=== PATIENT | female | born 1965 | race Caucasian/White ===

== ENCOUNTER → 2020-08-01 | Outpatient (CLI) | payer OTHER ==
[~2020-08-01] MED LIST: ATORVASTATIN CA40 MG PO; AUGMENTIN 875875 MG PO; BACLOFEN 10MG T10 MG PO; BENTYL 10 MG CA10 MG PO; EFFEXOR 5050 MG/1 T1 PO; EFFEXOR XR75 MG PO; FLEXERIL PO; KEPPRA 500 MG500 M1 PO; METHADONE HCL5 MG PO; MIRAPEX0.125 MG PO; MOBIC7.5 MG PO; NEURONTIN 300300 M1 PO; NORVASC5 MG PO; OXYCONTIN10 M1 PO; OXYCONTIN20 M1 PO; PERCOCET 5-3251 EACH PO; PERCOCET 7.5-31 EACH PO; PREDNISONE 20 M20 M1 PO; TOPROL XL25 MG PO; VENLAFAXIN75 MG/1 T2 PO
== END ==
LOC: MRI 10:46
DX: M51.15 Intervertebral disc disorders with radiculopathy, thoracolumbar region (principal); M43.16 Spondylolisthesis, lumbar region; M48.07 Spinal stenosis, lumbosacral region; M47.27 Other spondylosis with radiculopathy, lumbosacral region; G89.29 Other chronic pain; M43.22 Fusion of spine, cervical region; M41.86 Other forms of scoliosis, lumbar region; M48.03 Spinal stenosis, cervicothoracic region; M25.78 Osteophyte, vertebrae

== ENCOUNTER 2020-09-29 10:19 | Inpatient (IN) | payer OTHER ==
[~2020-09-29] VITALS: Ht 154.9 cm; Wt 90.7 kg
--- NOTE | ~2020-09-29 | O ---
[facility] [place] [address] OPERATIVE REPORT Name: SAJI LIPSCOMB Room #: 440-P ADM IN M.R.#: [id number] Admission: 09/29/20 Attend Phys: Zac Nettles MD Discharge: Date of : 61 Report #: [id number] THIS REPORT FOR: cc: KAYLEE - Family physician unknown KAYLEE - Family physician unknown Brenton Polk MD ~ CC: [facility] unknown Brenton Nettles DATE OF SERVICE: 10/06/2020 PREOPERATIVE DIAGNOSES: C3-C4 spinal stenosis, myelopathy; C6-C7 stenosis with myelopathy, previous anterior cervical diskectomy and fusion C4-C7. PROCEDURE: Application and removal of Romeo tongs, posterior instrumentation, C3-C4; posterior fusion, C3-C4; local bone graft harvest; laminectomy with partial facetectomy and neural foraminotomy bilateral C3, laminectomy with partial facetectomy and neural foraminotomy bilateral C4, laminectomy with partial facetectomy and neural foraminotomy C6, laminectomy with partial facetectomy and neural foraminotomy C7. Fluoroscopy. SURGEON: Dr. Brenton Polk. BANQUET CAPTAIN SURGEON: Dr. Kylah Ojeda. ANESTHESIA: General via endotracheal tube. INDICATIONS: The patient has had intractable neck and arm pain. She is also myelopathic. She has weakness and sensory changes in the arms diffusely. She has incoordination of the arms. She has unsteadiness on her feet. She has difficulty arising from a chair. She has lower extremity weakness and imbalance and she had truncal numbness. The patient was on Plavix and we had to wait to perform her surgery. The patient was maintained at bed rest and given some steroids, which showed some improvement of her condition. The patient was shown to be stenotic at C3-C4 and C6-C7. The patient having proved refractory to multimodality conservative management was brought to the operating room after understanding the risks of surgery to be , DVT, pulmonary embolism, paraplegia, quadriplegia, loss of the use of the arms, the legs, numbness, tingling, weakness, incoordination; loss of the ability to ambulate, loss of bowel and bladder function, loss of sexual function, possibility of bleeding, bleeding requiring transfusion, transfusion attendant risks of AIDS and hepatitis, infection, instability, the need for revision, prolonged hospital stay, dural leak, spinal headache. DESCRIPTION OF PROCEDURE: The patient was brought to the operating room, [address] [address] OPERATIVE REPORT Name: SAJI LIPSCOMB Room #: 440-P [facility] IN M.R.#: [id number] Admission: 09/29/20 Attend Phys: Zac Nettles MD Discharge: Date of : 61 Report #: [id number] prepped with 4 pin placement and Romeo tongs were applied. They were torqued to appropriate tightness. The patient was then transferred to the table on transverse rolls in a neck neutral position. The arms were carefully padded, tucked and taped to the side; the head Romeo attachment was attached to the table. The patient then underwent fluoroscopy to document position of the neck in a neutral position. With the neck in a neutral position, we were able to then sterilely prep and drape, infiltrate the skin with 0.5% Marcaine, 1:200,000 epinephrine. Sharp dissection was continued down through the skin, the subcutaneous tissues to the level of the fascia. Tips of the spinous processes were subperiosteally exposed and we performed a C2-C7 subperiosteal dissection, maintaining the facet capsules at C2-C3 and C7-T1. We then exposed the lateral masses and placed pedicle screw and lateral mass screws in the C3-C4 level. We drilled out the facets for later bone grafting. We then thinned and removed the spinous processes of C3 and C4 and performed a wide decompressive laminectomy of the C3 and C4 levels until we were lateral to the spinal sac. We then moved to the C6-C7 level and performed a wide decompressive bilateral laminectomy at C6 and C7 having removed the spinous processes and lamina. With the C6-C7 and C3-C4 levels decompressed completely, using no more than a 2 mm Kerrison and for most of the decompression the lamina was thinned so thin that we could lift it up with a micro curette under loupe magnification and headlight illumination. At the completion, all the removed bone, which had been meticulously cleaned and morcellized and saved was packed in the inner facet region at C3-C4. We confirmed good placement of our instrumentation with a final AP and lateral x-ray and it showed excellent placement of instrumentation at the C3-C4 level. With the C3-C4 level completed and the fusion complete at the C3 and C4 level and the decompression complete at C3-C4 and C6-C7, we were able to copiously irrigate with a liter of antibiotic-containing solution, obtained meticulous hemostasis, placed a gram of vancomycin in the wound and placed a deep drain. With the drain placed, we closed the deep fascial layer with 0 Ethibond in [id number] interrupted fashion, deep subQ with 0 Vicryl, superficial subQ with 2-0 Vicryl, skin with subcuticular 3-0, dressed it with benzoin, Steri-Strips, Xeroform, sterile dressing, sponges and a bioclusive. The patient tolerated the procedure well, no technical misadventures being placed in a soft collar and Romeo tongs were removed and the pin tracts were treated with antibiotic ointment and the patient was being transported to the recovery room for closer neurovascular observation discharge for once stable. There were no technical misadventures. Final x-rays showed excellent position of all instrumentation at the appropriate levels. Those screws were of appropriate length and trajectory and the patient tolerated the procedure well and was physiologically stable throughout. She is being transported to the recovery room for closer neurovascular observation discharge for once stable to continue prophylactic antibiotics and serial neurovascular exams. By: 1510 1540 Brenton Polk MD /nt
[~2020-09-29 10:19] MED LIST changes: -ATORVASTATIN CA40 MG PO; +LIPITOR40 MG PO
[2020-09-29 10:22] VITALS: BP 159/71
[2020-09-29 11:36] LABS: ABSOLUTE NEUTROPHILS 6.4 thou/uL (1.4-8.2); BASOPHILS 1.1 % (0.0-2.0); EOSINOPHILS 3.8 % (0.0-3.0); HEMATOCRIT 43.5 % (37.0-47.0); HEMOGLOBIN 15.1 gm/dL (12.0-15.0); LYMPHOCYTES 34.5 % (24.0-44.0); MCH 32.2 pg (26.0-34.0); MCHC 34.7 g/dL (28.0-37.0); MCV 92.7 fL (80.0-100.0); MONOCYTES 6.9 % (1.0-8.0); PLATELET COUNT 329 thou/uL (150-400); POLYS 53.7 % (36.0-66.0); RBC 4.69 mil/uL (4.20-5.00); RDW 12.9 % (10.5-14.5)
[2020-09-29 11:43] LABS: CALCIUM 9.5 mg/dL (8.5-10.1); CREATININE 0.8 mg/dL (0.6-1.0); POTASSIUM 3.6 mmol/L (3.5-5.1)
[2020-09-29 11:49] LABS: ALBUMIN 4.4 g/dL (3.4-5.0); TOTAL BILIRUBIN 0.6 mg/dL (0.2-1.0); TOTAL PROTEIN 8.1 g/dL (6.4-8.2)
[2020-09-29 13:09] VITALS: BP 159/71
[2020-09-29] MEDS ORDERED: CARVEDILOL12.5 MG PO (13:35)
[2020-09-29] MEDS ORDERED: ASA81BEC PO (13:35)
[2020-09-29] MEDS ORDERED: LISINOPRIL2.5 MG PO (13:36)
[2020-09-29] MEDS ORDERED: PLAVIX 75 MG TA75 MG PO (13:36)
[2020-09-29] MEDS ORDERED: RABEPRAZOLE SOD20 MG PO (13:38)
[2020-09-29] MEDS ORDERED: CYCLOBENZAPRINE10 MG PO (13:38)
--- NOTE | 2020-09-29 15:05 | EKG ---
[facility] [place] [address] ELECTROCARDIOGRAM REPORT Name: SAJI LIPSCOMB Room #: 457-P ADM IN M.R.#: [id number] Admission: 09/29/20 Attend Phys: Zac Nettles MD Discharge: Date of : 61 Report #: [id number] THIS REPORT FOR: cc: FAM - Family physician unknown FAM - Family physician unknown Serafin Connors MD [facility] ~ THIS REPORT FOR: //name// [facility] ED Test Date: 2020-09-29 Test Time: 12:46:29 Pat Name: SAJI LIPSCOMB Department: Room: [facility] Gender: F Director Of Officiating: [facility] : 1965 Requested By: Saúl Tejada Order Number: [id number] MD: Serafin Connors Measurements Intervals [place] Rate: 64 P: 50 PA: 163 QRS: 58 QRSD: 93 T: 29 QT: 424 QTc: 438 Interpretive Statements Sinus rhythm Compared to ECG 11/05/2014 13:16:52 No significant changes Electronically Signed On 09-29-2020 15:04:49 JIG AND FIXTURE REPAIRER by Serafin Connors [email or web address] <ELECTRONICALLY SIGNED> By: Serafin Connors MD, FACC 09/29/20 1504 1246 1246 Serafin Connors MD, [facility] /EPI
[2020-09-29 15:16] LABS: FOLIC ACID 11.6 ng/mL (8.6-58.9); TSH 2.284 uIU/mL (0.358-3.740)
[2020-09-29 15:44] VITALS: BP 141/70
[2020-09-29 20:00] VITALS: BP 138/83
--- NOTE | 2020-09-29 20:17 | NUR ---
ASSUMED CARE OF PATIENT APPROX 1355. PT A&OX4, VSS, PAIN AT 8 IN WHICH PATIENT STATES AN 8 IS TOLERABLE AND SHE DOESNT NEED PAIN MEDICATION AT THIS TIME. ORDER FOR PAIN MEDICATION RECEIVED. PATIENT HAD DINNER. PATIENT SR ON TELE MONITOR. PATIENT HAS SCAR DOWN SPIN FROM PREVIOUS SURGERY HEALED. NO SIGNS OF DISTRESS. WILL CONTINUE TO MONITOR.
[2020-09-30 04:25] VITALS: BP 136/90
--- NOTE | 2020-09-30 05:55 | NUR ---
Assumed pt care at 1900. A/OX4,VSS. Up with SBA to BR has history of frequent falls r/t numbness/tingling everywhere. Pt c/o pain to back/neck/hands; allergy list included Fentanyl on assessing pt's reaction to Fentanyl she reported it's N/V 7 yrs ago. Marlyn CUSTOMER ACCOUNT REPRESENTATIVE/Pharmacy notified; advised to administer medication with Zofran and monitor pt. Fentanyl administered x2 so far with no c/o N/V and reports relief from it. Pt has been NPO since midnight for possible surgery with . NSR on telemetry. Fall precautions in place, calls approp for help.
[2020-09-30 05:59] LABS: ABSOLUTE NEUTROPHILS 6.3 thou/uL (1.4-8.2); BASOPHILS 0.5 % (0.0-2.0); EOSINOPHILS 3.6 % (0.0-3.0); HEMOGLOBIN 14.5 gm/dL (12.0-15.0); LYMPHOCYTES 29.6 % (24.0-44.0); MCH 31.6 pg (26.0-34.0); MCHC 33.6 g/dL (28.0-37.0); MCV 94.1 fL (80.0-100.0); MONOCYTES 7.1 % (1.0-8.0); PLATELET COUNT 309 thou/uL (150-400); POLYS 59.2 % (36.0-66.0); RBC 4.57 mil/uL (4.20-5.00); RDW 12.9 % (10.5-14.5); WBC 10.6 thou/uL (4.0-11.0)
[2020-09-30 06:15] LABS: CALCIUM 9.3 mg/dL (8.5-10.1); CREATININE 0.8 mg/dL (0.6-1.0); MAGNESIUM 1.9 mg/dL (1.8-2.4); POTASSIUM 3.7 mmol/L (3.5-5.1)
--- NOTE | 2020-09-30 08:25 | 2DMMODE ---
[facility] [address] [place] [address] 2 D/M-MODE ECHOCARDIOGRAM Name: SAJI LIPSCOMB Room #: 457-P ADM IN M.R.#: [id number] Admission: 09/29/20 Attend Phys: Zac Nettles MD Discharge: Date of : 61 Report #: [id number] THIS REPORT FOR: cc: FAM - Family physician unknown FAM - Family physician unknown Lyle Salinas MD ~ APPROVED REPORT Study performed: 09/30/2020 07:25:56 EXAM: Comprehensive 2D, Doppler, and color-flow Echocardiogram Patient Location: Echo lab Room #: [facility] Status: routine BSA: 1.87 HR: 57 bpm BP: 136/90 mmHg Rhythm: NSR Other Information Study Quality: Adequate Indications CAD Hx: ND, stent, COPD. 2D Dimensions RVDd: 33.47 mm IVSd: 9.30 (7-11mm) LVOT Diam: 20.02 (18-24mm) LVDd: 47.80 mm PWd: 9.73 (7-11mm) LVDs: 33.42 (25-40mm) Aortic Root: 28.24 mm Volumes Left Atrial Volume (Systole) Single Plane 4CH: 35.69 mL Single Plane 2CH: 39.74 mL LA ESV Index: 23.00 mL/m2 Aortic Valve AoV Peak Da.: 1.65 m/s AO Peak Gr.: 10.84 mmHg LVOT Max P.45 mmHg LVOT Max V: 1.36 m/s ASHLI Vmax: 2.61 cm2 [facility] [address] [place] [address] 2 D/M-MODE ECHOCARDIOGRAM Name: ANDRA LIPSCOMBLA Room #: 457-[facility] IN M.R.#: [id number] Admission: 09/29/20 Attend Phys: Zac Nettles MD Discharge: Date of : 61 Report #: [id number] Mitral Valve E/A Ratio: 0.9 MV Decel. Time: 293.00 ms MV E Max Da.: 0.95 m/s MV A Da.: 1.08 m/s MV PHT: 84.97 ms IVRT: 110.73 ms Pulmonary Valve PV Peak Da.: 0.84 m/s PV Peak Gr.: 2.79 mmHg Pulmonary Vein P Vein S: 0.52 m/s P Vein A: 0.33 m/s P Vein D: 0.31 m/s P Vein A Dur.: 175.3 msec P Vein S/D Ratio: 1.68 Tricuspid Valve TR Peak Da.: 2.23 m/s RAP Estimate: 5.00 mmHg TR Peak Gr.: 20.00 mmHg PA Pressure: 25.00 mmHg Left Ventricle The left ventricle is normal size. There is normal LV segmental wall motion. There is normal left ventricular wall thickness. Left ventricular systolic function is normal. LVEF is 60-65%. Mild diastolic dysfunction is present. Right Ventricle The right ventricle is normal size. The right ventricular systolic function is normal. Atria The left atrium size is normal. The right atrium size is normal. Aortic Valve The aortic valve is normal in structure. No aortic regurgitation is present. There is no aortic valvular stenosis. Mitral Valve The mitral valve is normal in structure. There is no mitral valve regurgitation noted. No evidence of mitral valve stenosis. Tricuspid Valve The tricuspid valve is normal in structure. Trace tricuspid [facility] [address] [place] [address] 2 D/M-MODE ECHOCARDIOGRAM Name: SAJI LIPSCOMB Room #: 457-P ADM IN M.R.#: [id number] Admission: 09/29/20 Attend Phys: Zac Nettles MD Discharge: Date of : 61 Report #: [id number] regurgitation. Estimated PAP is 25mmHg. Pulmonic Valve The pulmonary valve is normal in structure. Trace pulmonic regurgitation. Great Vessels The aortic root is normal in size. Ascending aorta is not well visualized. IVC is normal in size and collapses >50% with inspiration. Pericardium There is no pericardial effusion. <Conclusion> The left ventricle is normal size. There is normal left ventricular wall thickness. Left ventricular systolic function is normal. Mild diastolic dysfunction is present. The right ventricle is normal size. The left atrium size is normal. The aortic valve is normal in structure. The mitral valve is normal in structure. Trace tricuspid regurgitation. Estimated PAP is 25mmHg. <ELECTRONICALLY SIGNED> By: Lyle Salinas MD 09/30/20823 3 3 Lyle Salinas MD /INF
[2020-09-30 10:33] VITALS: BP 156/93
--- NOTE | 2020-09-30 15:28 | NUR ---
PT ADMITTED RELATED TO CERVICAL NERVE IMPINGEMENT. CM REVIEWED CHART AND SPOKE WITH CARE TEAM. CM CALLED AND SPOKE WITH PT OVER THE PHONE THIS DAY. PT APPEARED TO BE A&O X4. CM ROLE INTRODUCED. PT INDICATED SHE LIVES IN A HOUSE WITH HER SPOUSE WITH 3 DOGS. SHE INDIATED NO STEPS TO ENTER AND 12 STEPS TO BASEMENT. SHE INDICATED THAT SHE HAD BEEN USING A CANE TO ASSIST WITH ABMULATION LYE PEEL OPERATOR. PT INDICATED HER SPOUSE HAD BEEN ASSISTING HER WITH MOST ADLS COOKING, GROOMING, DRESSING. PT INDICATED NO PCP, NO RECENT HH HX, AND NO HX OF POST ACUTE CARE STAY. PT INDICATED THAT SHE ANTICIPATES RETURNING HOME ONCE MEDICALLY STABLE. CM TO FOLLOW INDICATED WITH DC PLANNING.
[2020-09-30 16:44] VITALS: BP 157/78
[2020-09-30 19:04] VITALS: BP 147/76
--- NOTE | 2020-09-30 19:33 | NUR ---
ASSUMED PT CARE THIS AM. PT VSS, A&OX4. PT NPO THIS AM, TOOK A WHILE TO GET AHOLD OF SURGEON TO SEE IF PT WAS TO HAVE SURGERY TODAY. SURGERY NOT TODAY, PT GIVEN DIET. MEDS TOLERATED WELL. IV PATENT. PT UP TO BEDSIDE COMMODE. PT REPORTED PAIN MANAGED WELL WITH MEDS GIVEN. PT TEARFUL AT TIMES. PT REPORTED GENERALIZED NUMBNESS AND TINGLING. ENDORSED TO NIGHT NURSE.
[2020-10-01 00:07] VITALS: BP 136/71
--- NOTE | 2020-10-01 03:13 | NUR ---
ASSUMED PT CARE AROUND 1930. AXOX4. CALLS FOR HELP. VSS. NO S/S ACUTE DISTRESS NOTED OR REPORTED AT THIS TIME. WILL CONT TO MONITOR FOR ANY CHANGES IN CONDITION.
[2020-10-01 03:37] VITALS: BP 127/80
[2020-10-01 07:41] VITALS: BP 141/74
--- NOTE | 2020-10-01 11:58 | NUR ---
CM RECIEVED CONSULT TO LOOK INTO SNF OR ACUTE REHAB PLACEMENT UNTIL PT'S POSTERIOR CERVICAL DECOMPRESSION AND FUSION SURGERY THAT IT TO BE DONE Tuesday10/06/20. NEITHER PT OR OT HAVE WORKED WITH PT. CM CALLED AND SPOKE WITH PT ABOUT THIS AND SHE INDICATED THAT THIS WAS THE FIRST SHE HAD HEARD ABOUT THIS. CM EXPLAINED THAT DR. BUTLER HAD SAID SHE WASN'T SAFE TO RETURN HOME AND CM INDICATED THAT YES AND THAT CARE TEAM HAD ASKED CM TO LOOK AT PT POSSIBLE GOING TO SKILLED OR ACUTE REHAB PRIOR TO SURGERY IF APPROPRIATE. PT WASN'T THRILLED ABOUT THIS AND INDICATED SHE WOULD PREFER TO RETURN HOME OR JUST STAY HERE. CM INDICATED THAT PAT EDUCATION ASSOCIATE FROM [place] WOULD COME SPEAK WITH HER. CM TO FOLLOW INDICATED WITH DC PLANNING.
[2020-10-01 15:40] VITALS: BP 152/86
--- NOTE | 2020-10-01 16:34 | NUR ---
PT SEEM BY P.T. FOR SPINAL EDUCATION AND FUNCTIONAL MOBILITY ASSESSMENT. PLACED ON HOLD FOR ADDITIONAL P.T. INTERVENTION UNTIL AFTER SURGERY PER DR. RANDOLPH. PT HAS WALKER IN ROOM TO UTILIZE PRN FOR TOILETING/MOBILITY TASKS WITH NURSING STAFF ASSISTANCE. SEE P.T. NOTE FOR ADDITIONAL DETAILS. REQUEST NEW P.T. ORDERS POST SURGICAL INTERVENTION.
--- NOTE | 2020-10-01 16:38 | NUR ---
PT SEEN BY O.T. FOR SPINAL EDU AND FUNCTIONAL ADL ASSESSEMENT. PLACED ON HOLD FOR ADDITIONAL O.T. INTERVENTION UNTIL AFTER SURGERY PER DR. RANDOLPH. SEE O.T. NOTE FOR ADDITIONAL DETAILS. REQUEST NEW O.T. ORDERS POST SURGICAL INTERVENTION.
--- NOTE | 2020-10-01 17:54 | NUR ---
ASSUMED PT CARE THIS AM. PT VSS, A&OX4. PT COMPLAINED OF PAIN MANAGED WELL WITH MEDS. NAUSEA MANAGED WITH MEDS WELL. PT UP AT VARIOUS TIMES DURING THE SHIFT, MORE STEADY SOMETIMES THAN OTHERS. PT WALKED WITH ASSIST OF 1 OR 2 DEPENDING ON TIME. PT ON TELE WAS SR. IV PATENT. PT CONTINENT OF BLADDER, NO BM.
[2020-10-01 18:58] VITALS: BP 150/88
[2020-10-02 07:44] VITALS: BP 152/94
--- NOTE | 2020-10-02 07:54 | NUR ---
progress pt tearful and in a lot of pain on initial assessment stated staff today yelled at her for requesting pain meds. listened to pt and let her get her worries and concerns out and we talked about poc and pain control and pt was calm and felt reassured after pain controlled with hydrocodone and zofran given together to prevent nausea, one dose of 25 mcg fentanyl also given to get pain under control. pt had a good nights sleep after medication and felt much better this am. awaiting surgery on tuesday continue to monitor.
[2020-10-02 11:58] VITALS: BP 147/84
--- NOTE | 2020-10-02 13:07 | NUR ---
PATIENT WAS IN BED AWAKE WHEN CARE ASSUMED. SHE IS ALERT, AND ORIENTED X 4, ABLE TO VOICE NEED. LUNGS DIMINISHED IN ALL LOBE PER AUSCULTATION, BS+X4, ABD SOFT, NON-TENDER TO TOUCH, TOLERATING MEALS WELL. PATIENT TOOK MORNING MEDICATIONS WHOLE WITHOUT DIFFICULTY. SHE DID COMPLAIN OF NAUSEA X 1, ZOFRAN GIVEN AT 1011AM, WITH POSITIVE EFFECT. NO FURTHER COMPLAIN VOICED. PATIENT DENIES PAIN AT THIS TIME, STATES "AM DOING WELL NOW, PAIN IS TOLERABLE AT THIS TIME". AMBULATES WITH ASSIST OF ROLLER WLKER, GAIT IS SLOW, AND STEADY. NO SIGN OF ACUTE DISTRESS NOTED AT THIS TIME, CALL LIGHT IN REACH, WILL CONTINUE TO MONITOR.
--- NOTE | 2020-10-02 15:26 | NUR ---
PT TO HAVE SURGERY Tuesday10/06/20. CM FOLLOWING REGARDING DC PLANNING NEEDS.
[2020-10-02 16:59] VITALS: BP 141/85
--- NOTE | 2020-10-03 08:35 | NUR ---
PROGRESS PT LABILE AT TIMES BUT AFTER STOPPING AND TALKING TO PATIENT SHE CALMED DOWN AND STOPPED CRYING ADVISED HER TO TALK THINGS OUT WITH HER MAN.
--- NOTE | 2020-10-03 14:10 | NUR ---
PT IS TO BE HERE OVER THE WEEKEND. SHE IS TO HAVE SURGERY RELATED TO CERVICAL DECOMPRESSION SATURDAY 10/06. CM TO FOLLOW INDICATED WITH DC PLANNING.
--- NOTE | 2020-10-03 16:51 | NUR ---
ASSUMED CARE OF PATIENT THIS AM. ASSESSMENT CHARTED. MEDICATIONS GIVEN PER MAR. VSS. PATIENT IS A&OX4 AND C/O MILD PAIN BUT REFUSES MEDICATION BECAUSE SHE "IS ALLERGIC TO EVERYTHNING BUT DILAUDID". EVENTUALLY PATIENT DID TAKE HER PRN PAIN MED D/T SEVERE PAIN AND VOICED NAUSEA AFTERWARDS. CONSENT WAS SIGNED FOR SURGERY ON TUESDAY AND IS ON CHART. PATIENT IS RESTING IN BED AND VOICES NO OTHER NEEDS. PATIENT HAS A RONDON AT BEDSIDE D/T CALL LIGHT NOT WORKING. WILL CONTINUE TO MONITOR AND FOLLOW PLAN OF CARE
[2020-10-03 17:47] VITALS: BP 145/87
[2020-10-03 17:48] VITALS: BP 146/79
[2020-10-03 17:49] VITALS: BP 145/87
[2020-10-03 20:00] VITALS: BP 140/85
--- NOTE | 2020-10-04 06:00 | NUR ---
Pt. rested quietly at intervals during the night when checked on during frequent rounds. She does c/o genaralized pain all over and iv pain med was given (see emar) with some relief. Also, zofran given for nausea (see emar) with relief. UP to the bathroom with assistance of one and walker. Bed alarm is on.
[2020-10-04 08:35] VITALS: BP 131/85
--- NOTE | 2020-10-04 14:57 | NUR ---
PT A&O, FORGETFUL, VSS, C/O BACK PAIN. PATIENT RECEIVED DIALYSIS TODAY. PATIENT HAS GENERALIZED EDEMA. BILAT LE CELLULITIS, DRESSING CHANGE COMPLETED. DIALYSIS CATH RIGHT SUBCLAVIAN, IV PATENT. NO SIGNS OF DISTRESS. WILL CONITNUE TO MONITOR.
--- NOTE | 2020-10-04 15:06 | NUR ---
PT A&OX4, VSS, C/O BACK PAIN. IV PATENT, PATIENT TOLERATING DIET. NO SIGNS OF DISTRESS. PATIENT WILL HAVE SURGERY 10/06. WILL CONTINUE TO MONITOR.
[2020-10-04 16:29] VITALS: BP 137/80
[2020-10-04 21:46] VITALS: BP 135/86
[2020-10-05 05:35] LABS: HEMATOCRIT 44.6 % (37.0-47.0); HEMOGLOBIN 15.1 gm/dL (12.0-15.0); MCH 31.7 pg (26.0-34.0); MCHC 33.9 g/dL (28.0-37.0); MCV 93.6 fL (80.0-100.0); RBC 4.76 mil/uL (4.20-5.00); RDW 12.9 % (10.5-14.5); WBC 18.7 thou/uL (4.0-11.0)
[2020-10-05 05:49] LABS: APTT 28.4 Seconds (24.5-32.8); PROTIME 10.6 Seconds (9.3-11.4)
[2020-10-05 05:55] LABS: ALBUMIN 3.8 g/dL (3.4-5.0); CALCIUM 9.6 mg/dL (8.5-10.1); CREATININE 0.7 mg/dL (0.6-1.0); MAGNESIUM 1.9 mg/dL (1.8-2.4); POTASSIUM 4.2 mmol/L (3.5-5.1); TOTAL BILIRUBIN 0.3 mg/dL (0.2-1.0); TOTAL PROTEIN 7.4 g/dL (6.4-8.2)
--- NOTE | 2020-10-05 06:33 | NUR ---
Pt. rested quietly at intervals during the night when checked on during frequent rounds. She c/o generalized pain and ivp pain med given with some relief noted (SEE EMAR). Pt. also c/o nausea and ivp zofran given (see emar) with relief noted. Bed alarm is on.
[2020-10-05 08:00] VITALS: BP 127/85
--- NOTE | 2020-10-05 12:53 | NUR ---
PT A&OX4, VSS, C/O GENERALIZED PAIN. PAIN MEDICATION GIVEN. PATIENT SCHEDULED FOR SURGERY 10/06. IV RIGHT HAND PATENT. PATIENT C/O OF CONSTIPATION, MIRALAX GIVEN. NO SIGNS OF DISTRESS. WILL COTINUE TO MONITOR.
[2020-10-05 15:05] VITALS: BP 178/94
[2020-10-05 15:13] VITALS: BP 141/71
[2020-10-05 19:36] VITALS: BP 167/135
[2020-10-05 21:00] VITALS: BP 127/59
--- NOTE | 2020-10-06 04:06 | NUR ---
PATIENT HAS BEEN NPO SINCE MIDNIGHT FOR HER SURGERY ON CERVICAL SPINE AT NOON TODAY. PATIENT MEDS WILL NOT BE GIVEN THIS MORNING. BED IN LOW POSITION AND BED ALARM IS ON. PATIENT RESTING WITH EYES CLOSED. WILL CONTINUE TO MONITOR.
[2020-10-06 09:15] VITALS: BP 147/88; BP 169/103
--- NOTE | 2020-10-06 13:44 | NUR ---
ASSUMED CARE OF PT AT 0835. PT IS A&OX4. IS ON ROOM AIR. DENIES PAIN. IS STABLE. PT IS CURRENTLY IN SURGERY. SCOPE PATCH ORDERED. LABS & VITALS REVIEWED. PT TO GO TO 4S POST OP.
--- NOTE | 2020-10-06 16:27 | NUR ---
PT HAD HER SURGERY RELATED TO CERVICAL DECOMPRESSION THIS DAY. PT WAS MOVED TO 4S RM 440 POST OP. CM TO FOLLOW INDICATED WITH DC PLANNING.
[2020-10-06 18:12] VITALS: BP 187/112
[2020-10-06 19:02] VITALS: BP 182/108
--- NOTE | 2020-10-06 19:46 | NUR ---
Pt transferred to unit from recovery room. States pain is tolerable. Feeling nauseous. Blood pressure still elevated but better than in recovery room. Dressing c/d/i. Report given to noc RN. Hs RN will contact hospitalist doctor to see pt.
[2020-10-06 22:51] VITALS: BP 190/100
[2020-10-07 03:30] VITALS: BP 179/101
--- NOTE | 2020-10-07 04:16 | NUR ---
ASSESSMENT COMPLETED . PT STARTED OFF THE SHIFT WITH INTRACTABLE N/V. ZOFRAN GIVEN WITH NO RELIEF. CLEAR YELLOW EMESIS NOTED. BP ALSO ELEVATED.PT ABLE TO GET UP AND USE BSC. CERVICAL COLAR IN PLACE. INCISION SITE TO POSTERIOR NECK WITH DRSG INTACT, SMALL DRAINAGE BUT NOT GETTING WORSE. HEMOVAC IN PLACE. PT ASSESSED FOR SCOPOLAMINE PATCH BEHIND R EAR, NONE FOUND SO ANOTHER APPLIED. PT ALSO GIVEN ONE TIME DOSE OF COMPAZINE WHICH RELIEVED THE NAUSEA. BP MEDS ALSO GIVEN AND BP TENDING DOWN SLOWLY. HS ORAL MEDS NOT GIVEN DUE TO THE NAUSEA. PT DENIES PAIN REQUIRING ANY MEDS.SHE IS STABLE ON HER FEET, REPORTS SENSATION RETURNING TO BOTH HANDS AND BLADDER.PT IS ALOT BETTER THIS MORNING. AFEBRILE. CALL RONDON WITHIN REACH. WILL CONTINUE WITH POC TILL EOS.
[2020-10-07 06:00] LABS: HEMATOCRIT 47.6 % (37.0-47.0); HEMOGLOBIN 15.9 gm/dL (12.0-15.0); MCH 31.2 pg (26.0-34.0); MCHC 33.4 g/dL (28.0-37.0); MCV 93.4 fL (80.0-100.0); PLATELET COUNT 361 thou/uL (150-400); RDW 13.2 % (10.5-14.5)
[2020-10-07 06:39] LABS: CALCIUM 9.3 mg/dL (8.5-10.1); CREATININE 0.8 mg/dL (0.6-1.0)
[2020-10-07 07:30] VITALS: BP 189/102
[2020-10-07 08:36] LABS: ABSOLUTE NEUTROPHILS 18.5 thou/uL (1.4-8.2); PLATELET ESTIMATE NORMAL
[2020-10-07 09:34] VITALS: BP 158/91
--- NOTE | 2020-10-07 10:51 | NUR ---
Assumed care of pt at 0700. Pleasant 55 yo female. A&ox4. Pain controlled with prn pain meds. Dressing c/d/i. Soft collar in place. Denies nausea this am. States she has more sensation in her hands and can move them more. Bp 189/102 this am. Antihypertensives administered. Blood pressure rechecked: 158/91. Hemovac drain in place. Pt calls appropriately. Call light within reach. Will continue to monitor.
--- NOTE | 2020-10-07 11:43 | NUR ---
Case discussed with the care team. Pt is being reevaluated by therapy this morning. She has a cane at home and a walker from 2013. The pt does not have a current PCP. Will follow along and see if outpt therapy or HH is indicated at dc. Possible dc anticipated tomorrow home with spouse.
[2020-10-07 15:15] VITALS: BP 141/90
[2020-10-07 21:05] VITALS: BP 139/71
--- NOTE | 2020-10-08 03:11 | NUR ---
PT WAS OBSERVED SITTING UP IN THE RECLINER IN HER ROOM AT SHIFT CHANGE.PT COMPLAINED THAT HER CALL LIGHT WAS NOT WORKING,WAS CHANGED,OKAY NOW.PT UP WITH SBA/GAIT BELT AND WALKER TO THE [facility]OD ENDURANCE NOTED.PT C/O PAIN ON HER NECK,MANAGED WITH MED.PT SLEEPING ON HER BED AT THIS TIME.CALL LIGHT WITHIN REACH.
[2020-10-08 04:55] VITALS: BP 143/73
[2020-10-08 06:13] LABS: HEMATOCRIT 42.6 % (37.0-47.0); HEMOGLOBIN 14.2 gm/dL (12.0-15.0); MCH 31.3 pg (26.0-34.0); MCHC 33.3 g/dL (28.0-37.0); MCV 94.1 fL (80.0-100.0); PLATELET COUNT 312 thou/uL (150-400); RBC 4.53 mil/uL (4.20-5.00); RDW 13.1 % (10.5-14.5); WBC 22.2 thou/uL (4.0-11.0)
[2020-10-08 06:29] LABS: CALCIUM 8.4 mg/dL (8.5-10.1); CREATININE 0.9 mg/dL (0.6-1.0); POTASSIUM 4.2 mmol/L (3.5-5.1)
[2020-10-08 07:45] VITALS: BP 128/72
[2020-10-08 08:53] LABS: ABSOLUTE NEUTROPHILS 16.9 thou/uL (1.4-8.2); PLATELET ESTIMATE NORMAL
[2020-10-08] MEDS ORDERED: ROBAXIN 750 MG750 MG PO (12:08)
[2020-10-08] MEDS ORDERED: ACETAMINOPHEN325 M1 PO (12:08)
[2020-10-08] MEDS ORDERED: B-12500 MCG PO (12:08)
[2020-10-08] MEDS ORDERED: COLACE 100 MG100 MG PO (12:08)
[2020-10-08] MEDS ORDERED: VITAMIN D325 MC1 PO (12:08)
--- NOTE | 2020-10-08 14:21 | NUR ---
on-going assessment: CM REVIEWED CHART AND SPOKE WITH BEDSIDE RN. PT IS POSSIBLE DISCHARGE HOME TODAY WITH HOME HEALTH IF HER DRAIN OUTPUT IS LESS THEN 80CC FOR 8 HRS PER PROGRESS NOTE. CM MET WITH PATIENT WHO REPORTS SHE HAS NO PREFERENCE OF HH COMPANY. CM SPOKE [facility] WHO REPORTS THEY DO NOT GO TO [place], [place]. CM SPOKE WITH [facility] WHO REPORTS THEY DO GO TO [place] BUT WILL HAVE TO CHECK STAFFING. CM FAXED REFERRAL. [facility] ALSO GOES TO [place] SO REFERRAL WAS SENT. PT ALSO STATES SHE IS NEEDING A WALKER WITH A SEAT AND BRAKES. PT REPORTS NO PREFERENCE OF DME COMPANY. CM REACHED OUT TO [employer] WHO STATES THEY CAN SUPPLY IT BUT PT WILL BE RESPONSIBLE FOR 20 PERCENT. PT IS AGREEABLE. [facility] IS DELIVERING WALKER TODAY. CM WILL CONTINUE TO FOLLOW PT IS POSSIBLE DISCHARGE LATER TODAY WITH .
[2020-10-08 14:25] VITALS: BP 128/72
[2020-10-08 16:22] VITALS: BP 128/72
[2020-10-08] MEDS ORDERED: ZOFRAN ODT4 MG PO (16:41)
[2020-10-08 17:06] VITALS: BP 128/72
--- NOTE | 2020-10-08 19:54 | NUR ---
Assumed care of pt. at 0700. Pt. was calm and cooperative. Pt. was especially excited to have regained sensory and motor ability in her Left Arm. Pt. was excited to go home today pending her not haveing anymore than 100mL of drainage in hemovac by 1600. Pt. had less than 20mL of blood in hemovac at 1600. Patient requested Zofran perscription for home use. Dr. Nettles notified of this request and placed orders Zofran perscription in DC packet. Upon inspection of DC orders, DC summary had not been completed. Paged Dr. Nettles twice attempting to notify need of completion. Pt. 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 Pt. and live 3 hours away and fear built into frustration over the next 30-45 minute. Mill [employer] Lian notified, attempted communication. Patient's threatened to wheel out without signing anything. [employer] notified of lack of response from Dr. Nettles. [employer] Printed out necessary DC paperwork. Pt. signature received. Pt. left unit with DC info, education, and all belongings.
--- NOTE | 2020-10-09 10:11 | NUR ---
ON-GOING ASSESSMENT: CM RECEIVED A CALL BACK FROM [facility] WHO REPORTS THEY CAN ACCEPT PT FOR HH. CM FAXED THEM DISCHARGE ORDERS AND CONFIRMED THEY RECEIVED THEM. DR PAUL HAS AGREED TO CURRENTLY FOLLOW FOR HH HER PCP DR. SINA HOLLEY WAS HER PCP BUT SHE IS TRYING TO ESTABLISH ONE WHO IS CLOSER. CM DISCUSSED WITH PATIENT FINDING A PCP JAN. CASE CLOSED.
== END 2020-10-08 17:39 | disposition home or self-care (01) | DRG 29 ==
LOC: ER 10:19 → 4W 12:30 → EROBS 12:30 → 4W 13:50 → 4S 10-06 15:34
PROVIDERS: Nurse Practitioner; Physician Assistant; ADMIT Internal Medicine; ATTEND Internal Medicine
DX: M54.12 Radiculopathy, cervical region (principal); G95.29 Other cord compression; J44.1 Chronic obstructive pulmonary disease with (acute) exacerbation; M48.02 Spinal stenosis, cervical region; J45.909 Unspecified asthma, uncomplicated; E78.5 Hyperlipidemia, unspecified; K58.9 Irritable bowel syndrome, unspecified; I10 Essential (primary) hypertension; Z20.828 Contact with and (suspected) exposure to other viral communicable diseases; I25.10 Atherosclerotic heart disease of native coronary artery without angina pectoris; F17.210 Nicotine dependence, cigarettes, uncomplicated; G89.29 Other chronic pain; M54.2 Cervicalgia; Z85.41 Personal history of malignant neoplasm of cervix uteri; Z90.49 Acquired absence of other specified parts of digestive tract; Z88.6 Allergy status to analgesic agent; Z88.2 Allergy status to sulfonamides; Z88.8 Allergy status to other drugs, medicaments and biological substances; Z95.5 Presence of coronary angioplasty implant and graft; Z71.6 Tobacco abuse counseling; Z79.899 Other long term (current) drug therapy; Z79.82 Long term (current) use of aspirin
CPT/HCPCS: 10045; 10102; 50010; 50101; 50402; 50838; 51412; 56524; 56526; 56529; 58300; 58370; 58371; 62110; 62900; 65040; 65130; 70005

== ENCOUNTER → 2020-10-22 | Outpatient (CLI) | payer OTHER ==
[~2020-10-22] MED LIST changes: +ACETAMINOPHEN325 M1 PO; +ASA81BEC PO; +B-12500 MCG PO; +CARVEDILOL12.5 MG PO; +COLACE 100 MG100 MG PO; +CYCLOBENZAPRINE10 MG PO; +LISINOPRIL2.5 MG PO; +PLAVIX 75 MG TA75 MG PO; +RABEPRAZOLE SOD20 MG PO; +ROBAXIN 750 MG750 MG PO; +VITAMIN D325 MC1 PO; +ZOFRAN ODT4 MG PO
== END ==
LOC: RAD 09:44
DX: M43.22 Fusion of spine, cervical region (principal); Z98.890 Other specified postprocedural states

== ENCOUNTER → 2020-11-19 | Outpatient (CLI) | payer OTHER | LOC: RAD 11:57 | DX: M43.22 Fusion of spine, cervical region (principal); Z98.890 Other specified postprocedural states ==